=== PATIENT | female | born 1965 | race Caucasian/White ===

== ENCOUNTER → 2017-10-02 | Outpatient (CLI) | payer OTHER | LOC: CARDLAB 09:29 → CARDREHAB 14:52 → CARDLAB 16:00 | DX: R55 Syncope and collapse (principal); R42 Dizziness and giddiness ==

== ENCOUNTER 2019-03-11 20:36 | Emergency (ER) | payer BC ==
[2019-03-11] MEDS ORDERED: ESCITALOPRAM10 MG PO (20:47)
[2019-03-11] MEDS ORDERED: LEVOTHYROXIN0.025 MG PO (20:47)
[2019-03-11] MEDS ORDERED: ATIVAN1 M1 PO (21:27)
[2019-03-11 21:39] VITALS: BP 126/77
== END 2019-03-11 21:36 | disposition home or self-care (01) ==
LOC: ED 20:36
DX: F41.0 Panic disorder [episodic paroxysmal anxiety] (principal); K21.9 Gastro-esophageal reflux disease without esophagitis; E03.9 Hypothyroidism, unspecified; Z95.9 Presence of cardiac and vascular implant and graft, unspecified; Z98.890 Other specified postprocedural states; Z87.891 Personal history of nicotine dependence
CPT/HCPCS: J2060

== ENCOUNTER 2021-07-11 11:53 | Emergency (ER) | payer BC ==
[~2021-07-11 11:53] MED LIST: ATIVAN1 M1 PO; ESCITALOPRAM10 MG PO; LEVOTHYROXIN0.025 MG PO
[2021-07-11 12:40] VITALS: BP 144/79
[2021-07-11 13:20] LABS: ALBUMIN 4.1 g/dL (3.5-5.0); POTASSIUM 3.8 mmol/L (3.5-5.1)
[2021-07-11 13:21] LABS: CALCIUM 9.4 mg/dL (8.3-10.5)
[2021-07-11 13:22] LABS: TOTAL PROTEIN 7.9 g/dL (6.4-8.3)
[2021-07-11 13:24] LABS: TOTAL BILIRUBIN 0.4 mg/dL (0.2-1.2)
[2021-07-11] MEDS ORDERED: TOPIRAMATE25 MG PO (13:24)
[2021-07-11 13:27] LABS: BASO # 0.06 K/mm3 (0.02-0.10); EOS # 0.15 K/mm3 (0.04-0.40); HEMATOCRIT 36.5 % (37.0-47.0); HEMOGLOBIN 11.9 g/dL (12.5-16.0); LYMPH# 1.95 K/mm3 (1.50-4.00); MEAN CELL VOLUME 91 fl (78-100); MEAN CORPUSCULAR HEMOGLOBIN 30 pg (27-31); MEAN CORPUSCULAR HGB CONC 33 g/dL (33-37); MEAN PLATELET VOLUME 11.2 fl (7.4-10.4); MONO # 0.58 K/mm3 (0.20-0.80); NEU # 4.65 K/mm3 (1.40-6.50); PLATELET COUNT 284 K/mm3 (130-400); RED BLOOD COUNT 4.03 M/mm3 (4.10-5.30); RED CELL DISTRIBUTION WIDTH 12.5 % (11.5-14.5); WHITE BLOOD COUNT 7.4 K/mm3 (4.8-10.8)
[2021-07-11 13:35] LABS: PH-URINE 5.5 (5.0 - 8.0); URINE APPEARANCE CLEAR; URINE BILIRUBIN NEGATIVE (NEGATIVE); URINE BLOOD NEGATIVE (NEGATIVE); URINE COLOR YELLOW; URINE GLUCOSE NEGATIVE (NEGATIVE); URINE KETONE NEGATIVE (NEGATIVE); URINE LEUKOCYTE ESTERASE NEGATIVE (NEGATIVE); URINE NITRATE NEGATIVE (NEGATIVE); URINE PROTEIN(semi-quant) TRACE (NEGATIVE); URINE UROBILINOGEN NORMAL (NORMAL)
[2021-07-11] MEDS ORDERED: TRAMADOL 50 MG TAB PO (14:22)
== END 2021-07-11 14:33 | disposition home or self-care (01) ==
LOC: ED 11:53
PROVIDERS: Family Medicine
DX: R10.32 Left lower quadrant pain (principal)
CPT/HCPCS: J1885; J2405; Q9967

== ENCOUNTER 2021-10-09 13:29 | Emergency (ER) | payer BC ==
[~2021-10-09] VITALS: Ht 157.5 cm; Wt 76.4 kg
[~2021-10-09 13:29] MED LIST changes: +TOPIRAMATE25 MG PO; +TRAMADOL 50 MG TAB PO
[2021-10-09] MEDS ORDERED: CIPRO500 M1 PO (14:00)
[2021-10-09 14:26] LABS: ALBUMIN 4.2 g/dL (3.5-5.0); BASO # 0.03 K/mm3 (0.02-0.10); HEMATOCRIT 34.9 % (37.0-47.0); HEMOGLOBIN 11.4 g/dL (12.5-16.0); LYMPH# 0.52 K/mm3 (1.50-4.00); MEAN CELL VOLUME 91 fl (78-100); MEAN CORPUSCULAR HEMOGLOBIN 30 pg (27-31); MEAN CORPUSCULAR HGB CONC 33 g/dL (33-37); MEAN PLATELET VOLUME 11.3 fl (7.4-10.4); MONO # 0.59 K/mm3 (0.20-0.80); NEU # 7.36 K/mm3 (1.40-6.50); PLATELET COUNT 285 K/mm3 (130-400); RED BLOOD COUNT 3.83 M/mm3 (4.10-5.30); RED CELL DISTRIBUTION WIDTH 12.9 % (11.5-14.5); WHITE BLOOD COUNT 8.5 K/mm3 (4.8-10.8)
[2021-10-09 14:27] LABS: POTASSIUM 3.6 mmol/L (3.5-5.1)
[2021-10-09 14:28] LABS: CALCIUM 9.6 mg/dL (8.3-10.5)
[2021-10-09 14:29] LABS: TOTAL PROTEIN 8.2 g/dL (6.4-8.3)
[2021-10-09 14:31] LABS: TOTAL BILIRUBIN 0.6 mg/dL (0.2-1.2)
[2021-10-09 15:35] LABS: LYMPHOCYTE 7 % (20-51); MONOCYTE 5 % (3-10); NEUTROPHILS 88 % (42-75)
[2021-10-09 17:15] LABS: URINE APPEARANCE CLEAR; URINE COLOR YELLOW
[2021-10-09 17:16] LABS: URINE BILIRUBIN NEGATIVE (NEGATIVE); URINE BLOOD 50 ery/uL (NEGATIVE); URINE GLUCOSE NEGATIVE (NEGATIVE); URINE KETONE 1+ (NEGATIVE); URINE LEUKOCYTE ESTERASE TRACE (NEGATIVE); URINE NITRATE NEGATIVE (NEGATIVE); URINE PROTEIN(semi-quant) NEGATIVE (NEGATIVE); URINE UROBILINOGEN NORMAL (NORMAL)
[2021-10-09] MEDS ORDERED: ZOFRAN ODT4 MG PO (17:25)
[2021-10-09 17:36] VITALS: BP 111/58
== END 2021-10-09 17:45 | disposition home or self-care (01) ==
LOC: ED 13:29
PROVIDERS: Physician Assistant
DX: U07.1 COVID-19 (principal); E86.0 Dehydration; R11.2 Nausea with vomiting, unspecified; N39.0 Urinary tract infection, site not specified; Z87.891 Personal history of nicotine dependence
CPT/HCPCS: J1885; J2405; J7030